=== PATIENT | female | born 1955 | race African-American/Black ===

== ENCOUNTER 2017-10-19 04:17 | Emergency (ER) | payer OTHER ==
[~2017-10-19] VITALS: Ht 152.4 cm; Wt 57.8 kg
[2017-10-19 04:17] VITALS: BP 179/89
--- NOTE | 2017-10-19 04:40 | ED.ADGEN ---
Adult General Chief Complaint Chief Complaint " My right ear started hurting tonight... I could not get to sleep... " HPI HPI Patient is a 62 year old female who presents with Rt ear pain. Pt. does occasionally cleaning ears. No history immunosuppression. Patient no longer smokes. Patient does have a history of CVA and coronary artery disease. Patient currently has a implanted react monitor for dysrhythmia. Patient normally follows with [facility] Esp[facility]. No recent travel. No specific ill contacts. Not had ear infection for number of years. She denies any shortness of breath or chest pain. There is pain with movement of the ear. There is no adenopathy at ankle ear. There is some injection of ear canal with inflammation and fluid behind TM. Patient rates her current ear pain as 9 out of 10. No trismus. No mandible pain. Review of Systems Review of Systems Constitutional: Denies fever or chills [] Eyes: Denies change in visual acuity, redness, or eye pain [] HENT: Denies nasal congestion or sore throat, complaints of right ear pain Respiratory: Denies cough or shortness of breath [] Cardiovascular: No additional information not addressed in HPI [] GI: Denies abdominal pain, nausea, vomiting, bloody stools or diarrhea [] : Denies dysuria or hematuria [] Musculoskeletal: Denies back pain or joint pain [] Integument: Denies rash or skin lesions [] Neurologic: Denies headache, focal weakness or sensory changes [] Endocrine: Denies polyuria or polydipsia [] All other systems were reviewed and found to be within normal limits, except as documented in this note. Family History Family History Noncontributory Current Medications Current Medications Current Medications Medications (Trade) Dose Ordered Sig/Danish Start Time Stop Time Status Last Admin Dose Admin Cephalexin HCl (Keflex) 500 mg 1X ONCE 10/19/17 05:00 10/19/17 05:01 10/19/17 04:51 500 MG Hydrocodone Bitartrate/ Ibuprofen (Vicoprofen 7.5-200) 2 tab 1X ONCE 10/19/17 05:00 10/19/17 05:01 10/19/17 04:51 2 TAB Neomycin/ Polymyxin/ Hydrocortisone (Cortisporin Otic) 1 drop 1X ONCE 10/19/17 05:00 10/19/17 05:01 10/19/17 04:51 1 DROP Ondansetron HCl (Zofran Odt) 8 mg 1X ONCE 10/19/17 05:15 10/19/17 05:16 Allergies Allergies Allergies Coded Allergies Type Severity Reaction Last Updated Verified No Known Drug Allergies 10/19/17 No Physical Exam Physical Exam Constitutional: Moderately acute distress, non-toxic appearance. [] HENT: Normocephalic, atraumatic, left external ears normal, oropharynx moist, no oral exudates, nose normal. []Right ear canal and injected and abraded. Has fluid behind right TM Eyes: PERRLA, EOMI, conjunctiva normal, no discharge. [] Neck: Normal range of motion, no tenderness, supple, no stridor. [] Cardiovascular:Heart rate regular rhythm, no murmur . PMI to the left. Lungs & Thorax: Bilateral breath sounds with apex with few scattered wheezes on auscultation []implantable heart monitor at sternal edge left Abdomen: Bowel sounds normal, soft, no tenderness, no masses, no pulsatile masses. [] Old scar. Skin: Warm, dry, no erythema, no rash. [] Back: No tenderness, no CVA tenderness. [] Extremities: No tenderness, no cyanosis, no clubbing, ROM intact, no edema. [] Arthritic changes. Neurologic: Alert and oriented X 3, normal motor function, normal sensory function, no focal deficits noted. [] Psychologic: Affect anxious , judgement normal, mood normal. [] Current Patient Data Vital Signs Vital Signs Date Time Temp Pulse Resp B/P (MAP) Pulse Ox O2 Delivery O2 Flow Rate FiO2 10/19/17 04:17 98.3 66 18 99 Room Air EKG EKG [] Radiology/Procedures Radiology/Procedures [] Course & Med Decision Making Course & Med Decision Making Pertinent Labs and Imaging studies reviewed. (See chart for details). Take Tylenol or ibuprofen for pain. Use Cortisporin ear drops to right ear 4 times a day. Take Keflex 503 times a day. Follow-up primary care. Return if any concerns. [] Final Impression Final Impression 1. Rt. Otitis[] external and internal Dragon Disclaimer Dragon Disclaimer This electronic medical record was generated, in whole or in part, using a voice recognition dictation system. FLACO DUNN MD October 19, 2017 04:40
[2017-10-19] MEDS ORDERED: CEPH-264 PO (04:42)
[2017-10-19] MEDS ORDERED: ONDANSETRON ODT 4 MG TAB.RAPDIS ONE (04:52)
[2017-10-19] MEDS ORDERED: CEPHALEXIN 250 MG CAPSULE PO ONE (05:00)
[2017-10-19] MEDS ORDERED: HYDROcodon/IBUPROFEN 7.5/200MG 1 TAB TABLET PO ONE (05:00)
[2017-10-19] MEDS ORDERED: NEOMYCIN/POLYMYXIN/HC OTIC SUSPENSION 10ML BOTTLE. AD ONE (05:00)
[2017-10-19] MEDS ORDERED: ONDANSETRON ODT 4 MG TAB.RAPDIS PO ONE ×2 (05:00→05:15)
== END 2017-10-19 04:59 | disposition home or self-care (01) ==
LOC: ER 04:17
DX: H66.91 Otitis media, unspecified, right ear (principal)
CPT/HCPCS: 99284; Q0162

== ENCOUNTER → 2018-01-25 | Outpatient (CLI) | payer OTHER ==
[~2018-01-25] MED LIST: CEPH-264 PO
--- NOTE | 2018-01-26 09:57 | RAD ---
DATE: 01/25/2018 EXAM: DIGITAL SCREEN BILAT W/CAD HISTORY: Routine screening COMPARISON: 12/13/2009 This study was interpreted with the benefit of Computerized Aided Detection (CAD). The breast parenchyma is dense, which could reduce the sensitivity of mammography. Breast parenchyma level density D. FINDINGS: The fibroglandular tissues are extremely dense. This limits the sensitivity of mammography. No new or enlarging breast densities are seen. A benign-appearing lymph node type densities projected over the left axillary region. No suspicious microcalcifications are evident. IMPRESSION: Stable mammograms without evidence of malignancy. BI-RADS CATEGORY: 2 BENIGN FINDING(S) RECOMMENDED FOLLOW-UP: 12M 12 MONTH FOLLOW-UP PQRS compliance statement: Patient information was entered into a reminder system with a target due date for the next mammogram. Mammography is a sensitive method for finding small breast cancers, but it does not detect them all and is not a substitute for careful clinical examination. A negative mammogram does not negate a clinically suspicious finding and should not result in delay in biopsying a clinically suspicious abnormality. "Our facility is accredited by the [employer] Mammography [employer]."
== END | disposition home or self-care (01) ==
LOC: MAMMO 15:17
PROVIDERS: ATTEND Physician Assistant Medical
DX: Z12.31 Encounter for screening mammogram for malignant neoplasm of breast (principal)
CPT/HCPCS: 77067

== ENCOUNTER → 2020-10-01 | Outpatient (CLI) | payer MEDICARE ==
--- NOTE | 2020-10-01 13:53 | RAD ---
EXAM: Bilateral digital screening mammogram with tomosynthesis. HISTORY: 65-year-old female presents for screening mammography. TECHNIQUE: Full-field digital craniocaudal and mediolateral oblique 2D and 3D tomosynthesis images of both breasts are obtained for evaluation. Computer aided detection was applied. COMPARISON: 01/25/2018 BREAST PARENCHYMAL DENSITY: Level D - Extremely dense FINDINGS: There is no new suspicious mass, microcalcification or region of architectural distortion. There is a stable left axillary tail lymph node, allowing for differences in patient positioning. IMPRESSION: BI-RADS Category 2: Benign finding(s). RECOMMENDATION: Annual mammography is recommended. If your mammogram demonstrates that you have dense breast tissue, which could hide abnormalities, and if you have other risk factors for breast cancer that have been identified, you might benefit from s upplemental screening tests that may be suggested by your ordering physician. Dense breast tissue, i n and of itself, is a relatively common condition. This information is not provided to cause undue c oncern, but rather to raise your awareness and to promote discussion with your physician regarding th e presence of other risk factors, in addition to dense breast tissue. A report of your mammography re sults will be sent to you and your physician. You should contact your physician if you have any ques tions or concerns regarding this report. Mammography is a sensitive method for finding small breast cancers, but it does not detect them all a nd is not a substitute for careful clinical examination. A negative mammogram does not negate a clin ically suspicious finding and should not result in delay in biopsying a clinically suspicious abnorma lity. PQRS compliance statement - Patient information was entered into a reminder system with a target due date for the next mammogram. "Our facility is accredited by the [employer] Mammography [employer]." Electronically signed by: Charu Powell MD (10/01/2020 1:50 PM) [id number]
== END ==
LOC: MAMMO 11:36
PROVIDERS: ATTEND Physician Assistant Medical
DX: Z12.31 Encounter for screening mammogram for malignant neoplasm of breast (principal)
CPT/HCPCS: 77063; 77067